=== PATIENT | male | born 1955 ===

== ENCOUNTER 2024-09-29 18:15 | Emergency (ER) | payer OTHER ==
[~2024-09-29] VITALS: Ht 172.7 cm; Wt 131.8 kg
[2024-09-29 18:19] VITALS: BP 206/68; PULSE 104; TEMP 97.7; O2SAT 96
--- NOTE | 2024-09-29 18:41 | Physician Documentation ---
History of Present Illness ~ Chief Complaint: Leg Pain Stated Complaint: CELLUITIS Time Seen by MD: 20:35 HPI This is a 68-year-old male who presents with 2-3 weeks of progressively worsening bilateral lower extremity edema with erythema and discharge from several wounds to his legs, patient reports no new chest pain or shortness of breath. 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 Patient reports no fever. Medication Reconciliation Allergies: Coded Allergies: No Known Allergies (Unverified , 09/29/24) Scheduled Cephalexin*Monohydrate* (Keflex*), 1 CAP PO QID Sulfamethoxazole/Trimethoprim (Bactrim Ds Tablet), 1 TAB PO Q12H Review of Systems ROS Lower extremity swelling and erythema as stated above in the HPI, otherwise all systems are reviewed and negative. Physical Exam Vital Signs: Temperature: 97.7, Heart Rate: 104, Respiratory Rate: 19, BP: 206/68, Pulse Oximetry: 96, Weight: 131.820 Oxygen Flow Rate: 0 Physical Exam VITALS: Reviewed and as above. GENERAL: Alert, nontoxic appearing, no apparent distress. RESPIRATORY: No increased work of breathing, no respiratory distress, speaking in full clear sentences, clear lung sounds in all [place] CV: Regular rate and rhythm no murmur. 2+ pitting edema to bilateral lower extremities SKIN: Erythema to bilateral lower extremities with areas of purulent discharge greatest on right Progress Results/Orders Results/Orders Completed Orders - LOUIE GAY CMP (09/29/24 18:34) PBNP (09/29/24 18:34) Cephalexin Capsule (Keflex Capsule) (09/29/24 21:10) Sulfamethox/Trimetho. Ds Tab (Septra Ds (09/29/24 21:10) Medications Received in ER Medications (Trade) Dose Ordered Sig/Beto Route PRN Reason Start Time Stop Time Status Last Admin Dose Admin (Keflex capsule) 500 mg ONCE ONCE PO 09/29/24 21:10 09/29/24 21:14 DC 09/29/24 21:25 500 MG (Septra DS tab) 1 tab ONCE ONCE PO 09/29/24 21:10 09/29/24 21:14 DC 09/29/24 21:25 1 TAB Vital Signs 09/29/24 09/29/24 18:19 21:31 Temp 97.7 Pulse 104 Resp 19 16 B/P (MAP) 206/68 Pulse Ox 96 O2 Flow Rate 0 Laboratory Tests Test 09/29/24 18:35 09/29/24 18:38 Troponin I High Sensitivity 9 White Blood Count 12.8 H Red Blood Count 5.60 Hemoglobin 14.6 Hematocrit 44.4 Mean Corpuscular Volume 79.2 Mean Corpuscular Hemoglobin 26.0 L Mean Corpuscular Hemoglobin Concent 32.9 L Red Cell Distribution Width 16.4 H Platelet Count 256 Mean Platelet Volume 8.4 Neutrophils (%) (Auto) 70.9 Lymphocytes (%) (Auto) 19.2 L Monocytes (%) (Auto) 7.3 Eosinophils (%) (Auto) 2.0 Basophils (%) (Auto) 0.6 Neutrophils # (Auto) 9.1 H Lymphocytes # (Auto) 2.5 Monocytes # (Auto) 0.9 Eosinophils # (Auto) 0.3 Basophils # (Auto) 0.1 CBC Comment Sodium Level 137 Potassium Level 4.3 Chloride Level 103 Carbon Dioxide Level 26.6 Anion Gap 7 L Blood Urea Nitrogen 18 Creatinine 0.86 Estimated GFR/1.73 m2 88 BUN/Creatinine Ratio 20.9 H Glucose Level 122 H Calcium Level 8.8 Total Bilirubin 0.2 Aspartate Amino Transf (AST/SGOT) 27 Alanine Aminotransferase (ALT/SGPT) 35 Alkaline Phosphatase 95 Pro-B-Type Natriuretic Peptide 81 Total Protein 7.6 Albumin 3.3 L Globulin 4.3 Albumin/Globulin Ratio 0.8 L Procalcitonin < 0.05 Chemistry Comments EKG/XRAY/CT/US/VASC/MRI EKG : Additional Comment EKG interpreted as sinus tachycardia at a rate 100, normal axis, no ST segment elevation or depression Medical Decision Making Findings This 68-year-old male presented with 2-3 weeks of increased lower extremity edema with worsening erythema and tenderness to bilateral lower extremities with purulent discharge noted from bilateral lower extremities though greatest on the right. EKG did not demonstrate evidence of infarction or ischemia and lab work was reassuring for metabolic or electrolyte abnormality, lung sounds were clear and patient reporting no chest pain or shortness of breath to suggest congestive heart failure at this time additionally lab work did not support CHF as BNP was not elevated. Purulent drainage and erythema is consistent with cellulitis of lower extremities. Patient reported feeling otherwise well and had no other acute symptoms or concerns and remainder of physical exam was benign, vital signs stable, it was noted patient was somewhat hypertensive on triage though this resolved in ED room as systolic blood pressure was noted to be 132 by myself in room.. Patient is appropriate for outpatient follow up and we will be started on dual antibiotic coverage due to the purulent nature of cellulitis. Patient provided careful follow up instructions as increasing lower leg edema is concerning and patient reported understanding of these follow up instructions. Patient provided home care instructions and return to care precautions which he verbalized understanding of. General Diff Dx:Considerations: Include: Abrasion, Fracture, Hematoma, Laceration, Neurovascular injury, Other (Congestive heart failure, allergic reaction, abscess) Departure Time of Disposition: 21:16 Disposition: 01 HOME / SELF CARE / HOMELESS Impression: Primary Impression: Cellulitis Qualified Codes: L03.119 - Cellulitis of unspecified part of limb Condition: Improved Discharge Instructions: Cellulitis, Adult Additional Instructions: Take the antibiotics as prescribed, attempt to keep your feet elevated as much as possible help with the swelling. Please follow up with your primary care provider in the next few days. Please return to the emergency department for any new or worsening concerning symptoms including but not limited to worsening pain and swelling to your legs, fever, shortness of breath, or chest pain. Referrals: NO PRIMARY CARE PROVIDER (PCP) Prescriptions Sulfamethoxazole/Trimethoprim (Bactrim Ds Tablet) 800 Mg-160 Mg Tablet 1 TAB PO Q12H for 7 Days, #14 TAB Prov: LOUIE GAY 09/29/24 Cephalexin*Monohydrate* (Keflex*) 500 Mg Capsule 1 CAP PO QID, #28 CAP Prov: LOUIE GAYP 09/29/24 Education Educated: Patient Educated regarding: diagnosis, treatment, prognosis, need for follow up Signature Scribe Signature: No scribe Attestation: The note accurately reflects work and decisions made by me.DORA Coley 09/30/24 02:54 LOUIE GAY September 29, 2024 18:41
[2024-09-29 19:00] LABS: BASOPHILS # (AUTO) 0.1 X10'3 (0-0.2); BASOPHILS % (AUTO) 0.6 % (0-1); EOSINOPHILS # (AUTO) 0.3 X10'3 (0-0.9); HEMATOCRIT 44.4 % (42.0-52.0); HEMOGLOBIN 14.6 g/dl (14.0-17.9); LYMPHOCYTES # (AUTO) 2.5 X10'3 (1.1-4.8); LYMPHOCYTES % (AUTO) 19.2 % (21-51); MEAN CORPUSCULAR HGB CONC 32.9 g/dL (33.0-36.5); MEAN CORPUSCULAR VOLUME 79.2 FL (78-98); MEAN PLATELET VOLUME 8.4 FL (7.4-10.4); MONOCYTES # (AUTO) 0.9 X10'3 (0-0.9); MONOCYTES % (AUTO) 7.3 % (2-12); NEUTROPHILS # (AUTO) 9.1 X10'3 (1.8-7.7); NEUTROPHILS % (AUTO) 70.9 % (42-75); PLATELET COUNT 256 X10'3 (140-440); RED CELL DISTRIBUTION WIDTH 16.4 % (11.5-14.5); WHITE BLOOD COUNT 12.8 X10'3 (4.5-11.0)
[2024-09-29 19:08] LABS: ALANINE AMINOTRANSFERASE 35 U/L (12-78); ALBUMIN 3.3 G/DL (3.4-5.0); ALBUMIN/GLOBULIN RATIO 0.8 (1.1-1.5); ALKALINE PHOSPHATASE 95 IU/L (46-116); ANION GAP 7 (8-16); ASPARTATE AMINO TRANSFERASE 27 U/L (10-37); BILIRUBIN,TOTAL 0.2 MG/DL (0.1-1.0); BLOOD UREA NITROGEN 18 MG/DL (7-18); BUN/CREATININE RATIO 20.9 (10.0-20.0); CALCIUM 8.8 MG/DL (8.5-10.1); CHLORIDE 103 MMOL/L (99-107); CREATININE 0.86 MG/DL (0.60-1.10); GLUCOSE 122 MG/DL (70-104); POTASSIUM 4.3 MMOL/L (3.5-5.1); SODIUM 137 MMOL/L (135-145); TOTAL CARBON DIOXIDE 26.6 MMOL/L (24-32); TOTAL PROTEIN 7.6 G/DL (6.4-8.2); eCRCL 80 ML/MIN; eGFR 88 ML/MIN
[2024-09-29 19:14] LABS: PRO BRAIN NATRIURETIC PEPTIDE 81 PG/ML (0-125)
[2024-09-29] MEDS ORDERED: CEPH-585 PO (21:16)
[2024-09-29] MEDS ORDERED: SULF1TAB49 PO (21:16)
[2024-09-29] MEDS: cephalexin 250mg capsule PO ONE (21:25)
[2024-09-29] MEDS: sulfamethoxazole/trimethoprim DS (800/160mg) tablet PO ONE (21:25)
[2024-09-29 21:31] VITALS: RESP 16
--- NOTE | 2024-09-30 05:20 | ELECTROCARDIOGRAPH REPORT ---
[facility] Test Date: 2024-09-29 Test Time: 18:29:26 Pat Name: LUCAS SCOTT Department: EMERGENCY ROOM Room: Gender: M Emergency Room Doctor: : 1955 Requested By: DIONY OLSEN Order Number: [id number] Reading MD: Measurements Intervals [place] Rate: 100 P: 55 WA: 182 QRS: 24 QRSD: 109 T: 69 QT: 339 QTc: 438 Interpretive Statements Sinus tachycardia Inferior infarct, old Baseline wander in lead(s) I,II,aVR,aVL,aVF,V1,V2,V3,V4,V5,V6 Please click the below link to view image of tracing.
== END 2024-09-29 21:34 | disposition home or self-care (01) ==
LOC: ER 18:16
DX: L03.116 Cellulitis of left lower limb (principal); L03.115 Cellulitis of right lower limb
CPT/HCPCS: 36415; 80053; 83880; 84145; 84484; 85025; 93005; 99284